=== PATIENT | male | born 1985 | race Caucasian/White ===

== ENCOUNTER 2018-10-31 16:01 | Emergency (ER) | payer SELFPAY ==
--- NOTE | 2018-10-31 17:30 | ER Document Report ---
HPI - HPI Time Seen by Provider: 10/31/18 16:53 Quality of pain: Cramping Pain Level: 3 Context: Patient reports a cramp to the popliteal area of his right lower extremity for the past 3 days. Patient states that for the last 8 months to the past 1 year he has had a numbness to the dorsal aspect of his right foot as well as numbness to the toes of bilateral feet. Patient does report occasional numbness to the fingertips as well. Patient denies any history of diabetes. Patient does have a primary doctor but works frequently and has not seen them for follow-up. Patient denies any chest pain or dyspnea. Associated Symptoms: Other - Numbness to fingers and toes, leg cramps right lower extremity. denies: Headache Exacerbated by: Denies Relieved by: Denies Similar symptoms previously: No Recently seen / treated by doctor: No - ROS ROS below otherwise negative: Yes Systems Reviewed and Negative: Yes All other systems reviewed and negative - CONSTITUTIONAL Constitutional: DENIES: Fever, Chills - NEURO Neurology: DENIES: Headache, Weakness, Vision blurred, Dizzinesss / Vertigo - CARDIOVASCULAR Cardiovascular: DENIES: Chest pain - RESPIRATORY Respiratory: DENIES: Trouble Breathing, Coughing - GASTROINTESTINAL Gastrointestinal: DENIES: Nausea - MUSCULOSKELETAL Musculoskeletal: REPORTS: Extremity pain - right popliteal area - DERM Skin Color: Normal Skin Problems: None Past Medical History - General Information source: Patient - Social History Smoking Status: Current Every Day Smoker Smoking Education Provided: Yes Frequency of alcohol use: Occasional Drug Abuse: None Occupation: Pipe welding Family History: Reviewed & Not Pertinent Patient has suicidal ideation: No Patient has homicidal ideation: No - Medical History Medical History: Negative Renal/ Medical History: Denies: Hx Peritoneal Dialysis Surgical Hx: Negative Vertical Provider Document - CONSTITUTIONAL Agree With Documented VS: Yes Exam Limitations: No Limitations General Appearance: WD/WN, No Apparent Distress - INFECTION CONTROL TRAVEL OUTSIDE OF THE [place] IN LAST 30 DAYS: No - HEENT HEENT: Atraumatic, Normocephalic - NECK Neck: Normal Inspection, Supple - RESPIRATORY Respiratory: Breath Sounds Normal, No Respiratory Distress - CARDIOVASCULAR Cardiovascular: Regular Rate, Regular Rhythm Pulses: Normal: Radial, Dorsalis pedis - BACK Back: Normal Inspection - MUSCULOSKELETAL/EXTREMETIES Musculoskeletal/Extremeties: MAEW, FROM, Tender - Tenderness with subtle fullness to right popliteal area. Full range of motion to right knee joint. Normal skin color and temperature overlying joint - NEURO Level of Consciousness: Awake, Alert, Appropriate Motor/Sensory: No Motor Deficit. negative: No Sensory Deficit - Decreased fine sensation to dorsal aspect of right foot and toes of bilateral feet, - DERM Integumentary: Warm, Dry Course - Re-evaluation Re-evalutation: 10/31/18 17:[address] Cameron Quiles regarding patient presentation. Recommends obtaining Accu-Chek and referring to primary care provider for additional outpatient testing regarding the paresthesia. 10/31/18 18:37 Patient without any findings worrisome for vascular compromise at this time. Patient with minimally elevated blood sugar at this time and specimen was non- fasting. - Vital Signs Vital signs: Temp Pulse Resp BP Pulse Ox 98.7 F 79 16 128/93 H 97 10/31/18 16:35 10/31/18 16:35 10/31/18 16:35 10/31/18 16:35 10/31/18 16:35 - Laboratory Laboratory results interpreted by me: 10/31/18 18:37 Labs- Entire Visit 10/31/18 17:38 POC Glucose 119 H - Diagnostic Test Radiology reviewed: Reports reviewed Discharge - Discharge Clinical Impression: Paresthesia Right knee pain Qualifiers: Chronicity: acute Qualified Code(s): M25.561 - Pain in right knee Condition: Stable Disposition: HOME, SELF-CARE Instructions: Octaviano Wrap ([facility]), Numbness or Paresthesia ([facility]), Sprained Knee ([facility]) Additional Instructions: Return immediately for any new or worsening symptoms Followup with your primary care provider, call Friday to make a followup appointment Prescriptions: Naproxen [Naprosyn 250 Nmg Tablet] 1 tab PO BID #14 tablet Forms: Smoking Cessation Education, Return to Work Referrals: [facility] [Provider Group] - Follow up as needed
--- NOTE | 2018-10-31 18:54 | RADIOLOGY REPORT (SQ) ---
EXAM DESCRIPTION: VENOUS UNILATERAL LOWER COMPLETED DATE/TIME: 10/31/2018 6:43 pm REASON FOR STUDY: RLE pain COMPARISON: None. TECHNIQUE: Dynamic and static yang scale and color images acquired of the right leg venous system. S elected spectral images acquired with additional compression and augmentation maneuvers. The contrala teral common femoral vein and saphenofemoral junction were also imaged. Images stored on PACS. LIMITATIONS: None. FINDINGS: COMMON FEMORAL: Normal phasicity, compression and augmentation. No visualized echogenic ma terial on yang scale. No defects on color images. FEMORAL: Normal compression and augmentation. No visualized echogenic material on yang scale. No defe cts on color images. POPLITEAL: Normal compression, augmentation. No visualized echogenic material on yang scale. No defec ts on color images. CALF VESSELS: Normal compression, augmentation. No visualized echogenic material on yang scale. No de fects on color images. GSV and SSV: Normal compression, augmentation. No visualized echogenic material on yang scale. ANY DEEP VENOUS INSUFFICIENCY: Not evaluated. ANY EVIDENCE OF POPLITEAL CYST: Not a by OTHER: No other significant finding. CONTRALATERAL COMMON FEMORAL VEIN AND SAPHENOFEMORAL JUNCTION: Normal phasicity, compression and augmentation. No visualized echogenic material on yang scale. No de fects on color images. IMPRESSION: NO EVIDENCE OF DVT OR SVT IN THE RIGHT LEG. TECHNICAL DOCUMENTATION: JOB ID: [id number] [employer]- All Rights Reserved Reading location - IP/workstation name: [email or web address]
[2018-10-31 18:56] VITALS: BP 148/85
== END 2018-10-31 18:56 | disposition home or self-care (01) ==
LOC: ER 16:01
DX: R20.0 Anesthesia of skin (principal); R25.2 Cramp and spasm; M25.561 Pain in right knee; F17.200 Nicotine dependence, unspecified, uncomplicated
CPT/HCPCS: 82962; 93971; 99284